=== PATIENT | female | born 1980 | race Caucasian/White ===

== ENCOUNTER 2019-06-01 19:17 | Outpatient (RCR) | payer BC, OTHER, SELFPAY ==
--- NOTE | 2019-06-01 20:00 | PC.NURSE ---
Keanu Jay CNM in department. NST reviewed. Order given for discharge.
[2019-06-01 20:38] VITALS: BP 108/69; PULSE 93
== END 2019-08-25 08:02 | disposition home or self-care (01) ==
LOC: ANHOBOP 19:17
PROVIDERS: Visit Provider Obstetrics & Gynecology
DX: O36.8120 Decreased fetal movements, second trimester, not applicable or unspecified (principal); Z3A.26 26 weeks gestation of pregnancy
CPT/HCPCS: 59025

== ENCOUNTER 2019-08-24 10:25 | Outpatient (CLI) | payer BC, OTHER, SELFPAY ==
[2019-08-24 10:42] LABS: Basophils Percent Auto 0.3 % (0.2-1.2); Eosinophils Absolute Auto 0.2 K/mm3 (0-0.3); Hematocrit 36.4 % (37.0-47.0); Hemoglobin 12.4 g/dL (12.0-15.0); Immature Granulocyte Absolute 0.03 K/mm3 (0.00-0.031); Immature Granulocyte Percent A 0.3 % (0-0.5); Lymphocytes Absolute Auto 1.32 K/mm3 (0.9-3.2); Lymphocytes Percent Auto 13.9 % (18.3-44.2); Mean Corpuscular HGB Conc 34.1 g/dl (32-36); Mean Corpuscular Hemoglobin 30.4 pg (26-34); Mean Corpuscular Volume 89.2 fl (80-100); Mean Platelet Volume 10.1 fl (7.4-10.4); Monocytes Absolute Auto 0.5 K/mm3 (0.1-0.6); Monocytes Percent Auto 5.4 % (2.6-8.5); Neutrophils Absolute Auto 7.5 K/mm3 (1.3-6.7); Neutrophils Percent Auto 78.1 % (45.5-73.1); Platelet Count Result 201 k/mm3 (150-375); Red Blood Count 4.08 M/mm3 (4.2-5.4); White Blood Count 9.5 K/mm3 (4.5-10.0)
[2019-08-25 08:26] LABS: Rapid Plasma Reagin Non-Reactive (NonReactive)
== END 2019-08-24 10:26 | disposition home or self-care (01) ==
PROVIDERS: Visit Provider Obstetrics & Gynecology
DX: Z34.93 Encounter for supervision of normal pregnancy, unspecified, third trimester (principal); Z3A.00 Weeks of gestation of pregnancy not specified
CPT/HCPCS: 36415; 85025; 86592; 86900; 86901

== ENCOUNTER 2019-08-25 06:32 | Inpatient (IN) | payer BC, OTHER, SELFPAY ==
--- NOTE | 2019-08-01 14:52 | PC.NURSE ---
VERIFIED WITH OR SCHEDULE AND PATIENT--C/S WITH TUBAL LIGATION ON 08/26/19 AT 0730 PATIENT GIVEN REQUISITION FOR LAB DRAW ON 08/25/19
[2019-08-25] VITALS (41 sets, daily range): BP systolic 81–139; BP diastolic 57–121; PULSE 68–171; RESP 18; TEMP 36.2–37.2; O2SAT 97–100; BMI 35.9
[2019-08-25] MEDS: LACTATED RINGERS 1,000 ML 999 ML IV CONT (07:13)
--- NOTE | 2019-08-25 07:17 | LDADM ---
This patient, Ariane Archer, was admitted to Labor/Delivery/Recovery 119 on 08/25/19 at 06:32. Plans for labor, pain management and were discussed with patient. Patient/family oriented to hospital policies and general routines including ID bracelet, bed and alarms, visiting hours, pain management, procedures, bathroom and other care routines, personal items, smoking policy, room service/diet and guest tray routines, infant security routines, and visiting hours. Patient/Family are encouraged to report perceived risks to care and to ask questions if they do not understand what they are told or what they should do. See OBIX for further documentation.
--- NOTE | 2019-08-25 07:41 | WPDANESEPPF ---
Anes - Initial Pre Proc Eval Procedure: Operation Date: 08/25/19 09:00 Proposed Procedures p Repeat Section With Bilateral Tubal Ligation - David Sims MD Date/Time: 08/25/19 07:41 Surgeon: David Sims MD Pre Op Diagnosis: R C/S Patient Data Age: 39 Gender: F Height: 1.68 m Weight: 100.9 kg Last Vital Signs Temp 36.8 C 08/25/19 07:15 Pulse 95 08/25/19 07:16 BP 122/71 08/25/19 07:16 Allergies Allergy/AdvReac Type Severity Reaction Status Date / Time cetirizine AdvReac Unknown INSOMIA, Verified 08/01/19 14:28 AGGRESSION Home Medications Medication Instructions Recorded Confirmed Type PNV cmb#95-ferrous fumarate-FA 1 tablet PO DAILY 08/01/19 08/01/19 History [] famotidine [Pepcid] 20 mg PO DAILY 08/01/19 08/01/19 History loratadine-pseudoephedrine 1 tablet PO DAILY 08/01/19 08/01/19 History [Claritin-D 24 Hour] Patient hx anesthesia problems: none Family hx anesthesia problems: none PMFSH Past Medical History Medical History (Updated 08/25/19 @ 07:42 by Dereck Palma MD) IBS (irritable bowel syndrome) Psoriasis Surgical History Surgical History (Updated 08/25/19 @ 07:42 by Dereck Palma MD) Hx of section X2 Family History Family History (Updated 08/01/19 @ 14:33 by Chau Arguello RN) Grandparent Hypertension Diabetes mellitus Grandparent Brain aneurysm Grandparent Cerebrovascular accident Social History Social History Smoking status: Former smoker Substance use: never Spiritual care concerns: No Anes - Eval Final PreProcedure Day of Procedure 08/25/19 07:41 Patient weight: overweight Heart: regular rate and rhythm Lungs: clear to auscultation and normal air movement Airway: Mallampati scale class II Neurological: alert and oriented Last oral intake: >/= 8 hours ASA classification: II Emergent: no Anesthetic plan: proceed Anesthesia type and monitoring: regional spinal Informed Consent: The patient's anesthetic plan and its attendant risks and benefits were discussed with the patient/family/POA. Questions were solicited and answers provided to the satisfaction of the patient/family/POA.
[2019-08-25] MEDS: ceFAZolin 2 GM/D5W 50 ML 2 GM/50 ML BAG IVPB (07:51)
--- NOTE | 2019-08-25 07:52 | PM.IMHP ---
H&P: HPI History of Present Illness Chief complaint: R C/S Narrative: Ariane Archer is a 39 year old female 11 para 2 0 8 2 at 39 weeks gestation who presents for repeat delivey. She has history of 2 previous deliveries. She has unwanted fertility as well. We have agreed to perform a repeat delivery with bilateral tubal ligation. The procedure has been explained in detail. Risks have been explained in detail as well. She understands that injuries may occur that result in hospitalization, more surgery, and severe illness. She understands risk of hemorrhage and infection. Review of Systems Constitutional: Constitutional: Reports no additional constitutional complaints, Denies fatigue, Denies headache(s), Denies lethargy and Denies weakness Eyes: Eyes: Reports no additional eye complaints, Denies blurry vision and Denies photophobia ENT: Reports as per HPI, Denies headache(s) and Denies neck pain Cardiovascular: Cardiovascular: Denies chest pain, Denies diaphoresis, Denies leg edema, Denies palpitations and Denies dyspnea Respiratory: Respiratory: Denies hemoptysis, Denies dyspnea and Denies wheezing Gastrointestinal: Gastrointestinal: Denies abdominal pain, Denies melena, Denies bloating, Denies hematochezia, Denies nausea and Denies vomiting Genitourinary: Genitourinary: Reports no additional female genitourinary complaints Musculoskeletal: Musculoskeletal: Denies joint swelling, Denies neck pain, Denies numbness and Denies stiffness Neurologic: Denies Abnormal speech present, Denies confusion, Denies headache(s), Denies numbness and Denies weakness Psychiatric: Psychiatric: Denies anxiety, Denies confusion, Denies depression, Denies homicidal ideation and Denies suicidal ideation Endocrine: Endocrine: Denies fatigue and Denies palpitations Allergic/Immunologic: Allergic/Immunologic: Denies wheezing PMFSH Past Medical History Medical History (Updated 08/25/19 @ 07:54 by David Sims MD) IBS (irritable bowel syndrome) Psoriasis Surgical History Surgical History (Updated 08/25/19 @ 07:42 by Dereck Palma MD) Hx of section X2 Family History Family History (Updated 08/01/19 @ 14:33 by Chau Arguello RN) Grandparent Hypertension Diabetes mellitus Grandparent Brain aneurysm Grandparent Cerebrovascular accident Social History Social History Smoking status: Former smoker Substance use: never Spiritual care concerns: No Meds Home Medications and Allergies Home Medications Medication Instructions Recorded Confirmed Type PNV cmb#95-ferrous fumarate-FA 1 tablet PO DAILY 08/01/19 08/01/19 History [] famotidine [Pepcid] 20 mg PO DAILY 08/01/19 08/01/19 History loratadine-pseudoephedrine 1 tablet PO DAILY 08/01/19 08/01/19 History [Claritin-D 24 Hour] Allergies Allergy/AdvReac Type Severity Reaction Status Date / Time cetirizine AdvReac Unknown INSOMIA, Verified 08/01/19 14:28 AGGRESSION Vital Signs Vital Signs - 24 hr 08/25/19 06:57 08/25/19 07:01 08/25/19 07:15 Temperature 98.2 F Pulse Rate 105 H 101 H Blood Pressure 114/76 121/63 08/25/19 07:16 Temperature Pulse Rate 95 Blood Pressure 122/71 Exam Const: General: healthy appearing, comfortable and no acute distress; No confusion Orientation/consciousness: No confusion Eyes: Direct Ophthalmoscopy: No photophobia Resp: Auscultation: clear to auscultation bilaterally, no rales, no rhonchi and no wheezes Cardio: Rate: regular rate Heart sounds: no click, no murmurs and no rubs GI: Inspection: non-distended GI Palp: No abdominal tenderness Auscultation: normal bowel sounds Neuro: General: No confusion Speech: No Abnormal speech present Extrem: General: normal to inspection, no pedal edema and no calf tenderness Assessment and Plan Assessment and plan (1) Hx of section: Code(s): Z98.891 - History of u
--- NOTE | 2019-08-25 08:49 | PM.PROC ---
Procedure Note - Detailed Date of procedure: 08/25/19 Pre-op diagnosis: R C/S Unwanted fertility Post-op diagnosis: same Procedure performed: Repeat low-transverse delivery, tubal ligation Description of procedure: The patient was taken the operating room. She was prepped and draped in the dorsal supine position with leftward tilt after induction of spinal anesthetic. When anesthesia was found to be adequate a low-transverse skin incision was made and carried down to the level the fascia with the knife. The fascial incision was made at the midline with a scalpel. The fascial incision was extended laterally with Arambula scissors. The fascia was tented upward superior and inferior with Shane clamps. The rectus muscles were dissected off bluntly. The rectus muscles at the midline. The preperitoneal fat was dissected bluntly at the superior aspect of the separate the rectus muscles. The peritoneal cavity was entered bluntly in the same area. The peritoneal incision was extended superior and inferior with good position of bladder. Bladder blade was inserted. A low-transverse incision was made on the uterus with the scalpel. It was carried down the level of the amniotic cavity with a knife. The amniotic cavity bluntly. The uterine incision was made laterally with blunt traction. The was delivered. The cord was clamped and cut. The infant was handed off to waiting pediatric staff. Cord bloods were obtained. The placenta was removed manually. The uterus was exteriorized. Uterus cleared of all clots and debris. Uterus closed in 0 Vicryl in a running locked fashion. An imbricating layer of 0 Vicryl was also placed on the to bolster the closure. Fallopian tube was grasped in the ampullary region with a [place]. It was raised away from the accompanying vein. A window was created in the broad ligament in this area of the tube. 0 Vicryl was used to ligate the proximal distal ends of the skeletonize region of the tube. The segment of the tube was resected with scissors. The cut surfaces were cauterized. On the contralateral side the procedure was performed identically. The uterus was returned to the abdomen. The gutters were cleared of all clots and debris. The fascia was closed 0 Vicryl in a running fashion. Subcutaneous tissue was irrigated and bleeding areas were cauterized. The skin was closed with subcuticular absorbable adelia. The incision was covered with derma plasencia. The patient tolerated the procedure well. She was taken recovery room stable condition. Sponge, lap, needle counts were correct x2. Anesthesia: spinal Surgeon: David Sims MD Estimated blood loss (mL): 450 Drains: No Packing: No Pathology: none sent Complications: No immediate complications Condition: stable Disposition: floor Findings: Normal maternal anatomy. Average size infant with normal Apgars.
[2019-08-25] MEDS: OXYTOCIN 30 UNITS/NS 500 ML 30 UNITS/500 ML BAG 125 UNITS IV CONT (09:31)
--- NOTE | 2019-08-25 11:53 | PC.NURSE ---
1115-Patient transferred to post room #289 via stretcher. Support person present. Oriented to unit, room, information board, rooming in, admission packet and security measures. Patient verbalizes understanding.
[2019-08-25] MEDS: IBUPROFEN 600 MG TABLET PO ×2 (13:02→21:32)
[2019-08-25] MEDS: DEXTROSE 5%/0.45% SOD CHL 1,000 ML 125 ML IV CONT (13:30)
[2019-08-25] MEDS: KCL 20 MEQ/D5/0.45% SOD CHL 1,000 ML 125 ML IV CONT (21:39)
[2019-08-26 00:10] VITALS: BP 122/70; PULSE 97; RESP 17; TEMP 37.2
[2019-08-26] MEDS: IBUPROFEN 600 MG TABLET PO ×3 (04:34→17:03)
[2019-08-26 04:42] LABS: Basophils Percent Auto 0.2 % (0.2-1.2); Eosinophils Absolute Auto 0.1 K/mm3 (0-0.3); Eosinophils Percent Auto 0.6 % (0-4.4); Hematocrit 30.8 % (37.0-47.0); Hemoglobin 10.6 g/dL (12.0-15.0); Immature Granulocyte Absolute 0.08 K/mm3 (0.00-0.031); Immature Granulocyte Percent A 0.5 % (0-0.5); Lymphocytes Absolute Auto 1.12 K/mm3 (0.9-3.2); Lymphocytes Percent Auto 7.3 % (18.3-44.2); Mean Corpuscular HGB Conc 34.4 g/dl (32-36); Mean Corpuscular Volume 90.1 fl (80-100); Monocytes Absolute Auto 0.9 K/mm3 (0.1-0.6); Monocytes Percent Auto 6.1 % (2.6-8.5); Neutrophils Absolute Auto 13.1 K/mm3 (1.3-6.7); Neutrophils Percent Auto 85.3 % (45.5-73.1); Platelet Count Result 181 k/mm3 (150-375); Red Blood Count 3.42 M/mm3 (4.2-5.4); Red Cell Distribution Width 13.1 % (11.5-14.5); White Blood Count 15.4 K/mm3 (4.5-10.0)
[2019-08-26 05:00] VITALS: BP 103/63; PULSE 98; RESP 16; TEMP 36.8
[2019-08-26 08:35] VITALS: BP 104/60; PULSE 90; RESP 18; TEMP 36.9; O2SAT 99
[2019-08-26] MEDS: DOCUSATE SODIUM 100 MG CAPSULE PO ×2 (10:06→17:03)
[2019-08-26] MEDS: FAMOTIDINE 20 MG TABLET PO ×2 (10:06→10:52)
[2019-08-26] MEDS: SIMETHICONE 80 MG TAB.CHEW PO (10:29)
--- NOTE | 2019-08-26 13:10 | P.PNOB_ITS ---
OB - PN: Subj Subjective Date/time seen: 08/26/19 13:10 Patient comments: no complaints and pain well controlled baby status: doing well OB - PN: Obj Data Labs CBC & Chem 7: 08/26/19 04:15 Labs: Laboratory Results - last 24 hr 08/26/19 04:15 WBC 15.4 H RBC 3.42 L Hgb 10.6 L Hct 30.8 L MCV 90.1 MCH 31.0 MCHC 34.4 RDW 13.1 Plt Count 181 MPV 10.0 Immature Gran % (Auto) 0.5 Neut % (Auto) 85.3 H Lymph % (Auto) 7.3 L [place] % (Auto) 6.1 Eos % (Auto) 0.6 Baso % (Auto) 0.2 Lymph # (Auto) 1.12 [place] # (Auto) 0.9 H Eos # (Auto) 0.1 Baso # (Auto) 0.0 Abs Immat Gran (auto) 0.08 H Absolute Neuts (auto) 13.1 H Absolute Nucleated RBC 0.0 Nucleated RBC % 0.0 OB - PN A/P Plan day: 1 Comments: Post Op LTCS - no problems, routine recovery Time Spent With Patient Time: Total time spent is greater than 50% in coordination of care (as documented) at patient's floor/unit and/or counseling patient: Exam Const: General: cooperative, healthy appearing, comfortable and no acute distress Resp: Auscultation: no crackles, no rales, no rhonchi and no wheezes Cardio: Rhythm: regular rhythm Heart sounds: no click and no murmurs GI: Inspection: non-distended Auscultation: normal bowel sounds Extrem: General: normal to inspection, no pedal edema and no calf tenderness
--- NOTE | 2019-08-26 13:14 | WPDHPUPDATE1 ---
History and Physical Update Update Date/Time: 08/26/19 13:14 This patient is a 17y/o G1 at 39 week gestation who presents for labor. She has an uncomplicated . She presented with contractions and demonstrated cervical change during observation. AROM was preformed after 2nd dose of Abx. Clear fluid - 5/50/-3, Epidural placed. Expectant management and augmentation. History and Physical has been reviewed, including an updated exam of the patient. There are NO changes in the patient's condition. Risks, benefits, and alternatives have been discussed and questions answered. Patient agrees to proceed with procedure.
--- NOTE | 2019-08-26 15:56 | WPDANLDPN2 ---
Anes-Prog Note L&D Date/Time: 08/26/19 15:56 Comfortable throughout: section Neuraxial method: spinal Epidural/Spinal procedure site: clean & non-tender Neuro status: Neuro function grossly intact. Cardiovascular status: normal Respiratory status: normal Airway patency: baseline Mental status: baseline Post-Op hydration status: normal Vital Signs: Last Vital Signs Temp 36.9 C 08/26/19 08:35 Pulse 90 08/26/19 08:35 Resp 18 08/26/19 08:35 BP 104/60 08/26/19 08:35 Pulse Ox 99 08/26/19 08:35 I/O: Intake & Output 08/25/19 08/26/19 08/26/19 23:59 07:59 15:59 Intake Total 1418 600 Output Total 675 2600 Balance 743 -2000 Post-procedural complaints: none Patient feedback: Patient satisfied with anesthetic care.
--- NOTE | 2019-08-26 15:57 | WPDANLDNPN2 ---
Anes-Prog Note L&D-Neuraxial Date/Time: 08/26/19 15:57 Neuraxial medications: intrathecal PF morphine Opiod-related complaints: none Patient feedback: Patient satisfied with post-operative pain management.
[2019-08-26 19:25] VITALS: BP 115/70; PULSE 96; RESP 16; TEMP 36.6; O2SAT 99
--- NOTE | 2019-08-26 19:25 | PC.NURSE ---
Patient viewed the discharge video Mother & Baby Care, The First Two Weeks . Patient was given the opportunity and encouraged to ask questions. Patient verbalized understanding of information shared and has been given the mother/baby guide for home reference.
[2019-08-27] MEDS: IBUPROFEN 600 MG TABLET PO ×2 (00:02→05:52)
[2019-08-27 08:55] VITALS: BP 117/75; PULSE 84; RESP 18; TEMP 36.5
[2019-08-27] MEDS: DOCUSATE SODIUM 100 MG CAPSULE PO (10:21)
--- NOTE | 2019-08-27 13:10 | PM.OBPNVD ---
OB - PN: Subj Subjective Date/time seen: 08/27/19 13:10 Patient comments: no complaints, pain well controlled, incisional pain, tolerating diet and flatus present OB - PN: Obj Data Labs CBC & Chem 7: 08/26/19 04:15 OB - PN A/P Plan day: 2 Plan: routine care Comments: POD#2 LTCS - no problems, to d/c - incision - cdi Time Spent With Patient Time: Total time spent is greater than 50% in coordination of care (as documented) at patient's floor/unit and/or counseling patient: Exam Const: General: comfortable, no acute distress and alert Resp: Effort & Inspection: normal respiratory effort Auscultation: no crackles, no rales and no rhonchi Cardio: Rate: regular rate Heart sounds: no click, no murmurs and no rubs GI: Inspection: non-distended GI Palp: No Tenderness to palpation present (GI) Auscultation: normal bowel sounds Other: Incision - CDI Extrem: General: normal to inspection, no pedal edema and no calf tenderness
--- NOTE | 2019-08-27 13:12 | PM.OBDSVD ---
DS: Diagnosis Admitting Diagnosis Admitting Diagnosis: History of uterine scar from previous surgery Discharge Diagnosis (1) delivery delivered: Code(s): O82 - Encounter for delivery without indication Status: Acute (2) Unwanted fertility: Code(s): Z30.09 - Encounter for other general counseling and advice on contraception Status: Acute OB - DS: Summary OB Procedures : NST and Ultrasound OB Procedures Intrapartum: and Tubal ligation OB Procedures: : None Peripartum Data Procedures: Procedures Operation Date: 08/25/19 09:00 Actual Procedures Side Surgeon p Section David Sims MD complications: none Status at Discharge Functional status at discharge: independent ambulation Time Spent with Patient Time attestation: Total time spent providing and/or coordinating discharge services: Time spent: Less than 30 minutes DS: Data Data Completed and Pending Completed studies during hospitalization: Pending at discharge 08/25/19 08:28 Surgical [PTH] Routine Discharge Plan Discharge Discharging Clinician: David Sims Patient Disposition: Home, Self-Care Activity: pelvic rest Diet: regular Patient Instructions: Antibiotic Form Stand Alone Forms: General Discharge Information Follow-up/Referrals: David Sims MD [Physician] - Discharge Medications: New hydrocodone-acetaminophen 5-325 mg tablet 1 - 2 tablet PO Q4H PRN (Reason: pain) Qty: 25 RF: 0 Continued loratadine-pseudoephedrine [Claritin-D 24 Hour] 10-240 mg Tablet Extended Release 24 Hr 1 tablet PO DAILY RF: 0 famotidine [Pepcid] 20 mg Tablet 20 mg PO DAILY RF: 0 PNV cmb#95-ferrous fumarate-FA [] 28 mg iron- 800 mcg Tablet 1 tablet PO DAILY RF: 0 Date of admission: 08/25/19 06:32 Primary Care Provider: UNKNOWN,DOCTOR Admitting Provider: David Sims Attending physician on admission: David Sims
[2019-08-29 09:16] VITALS: BP 122/77; PULSE 84; RESP 18; TEMP 36.6; O2SAT 99
== END 2019-08-27 13:50 | disposition home or self-care (01) | DRG 785 ==
LOC: ANHSURGERY 06:43 → ANHLDR 06:44 → ANHOB2 13:30
PROVIDERS: Admitting Provider Obstetrics & Gynecology; Visit Provider Obstetrics & Gynecology
PROC: 10D00Z1 Extraction of Products of Conception, Low, Open Approach (ICD-10-PCS; CPT 59514; principal; 2019-08-25 09:00)
DX: O34.211 Maternal care for low transverse scar from previous cesarean delivery (principal); Z3A.39 39 weeks gestation of pregnancy; Z37.0 Single live birth; Z30.2 Encounter for sterilization; K58.9 Irritable bowel syndrome, unspecified; L40.9 Psoriasis, unspecified; O99.72 Diseases of the skin and subcutaneous tissue complicating childbirth; O99.62 Diseases of the digestive system complicating childbirth; Z23 Encounter for immunization
CPT/HCPCS: 36415; 85025; 86592; 86900; 86901; 88302; A9270; J0131; J0690; J1200; J1885; J2274; J2370; J2590; J3480; J7120

== ENCOUNTER 2020-04-27 10:06 | Outpatient (CLI) | payer BC, OTHER, SELFPAY | END 2020-04-27 10:07 | disposition home or self-care (01) | LOC: ANHSURGERY 10:13 | PROVIDERS: Visit Provider Obstetrics & Gynecology | DX: Z01.818 Encounter for other preprocedural examination (principal); N92.0 Excessive and frequent menstruation with regular cycle | CPT/HCPCS: 36415; 86850; 86900; 86901 ==

== ENCOUNTER 2020-04-28 01:13 | Outpatient (CLI) | payer BC, SELFPAY ==
[2020-04-28 20:15] LABS: SARS-CoV-2 RNA PCR Negative
== END 2020-04-28 01:14 | disposition home or self-care (01) ==
LOC: ANHCOVIDDT 01:13
PROVIDERS: Visit Provider Obstetrics & Gynecology
DX: Z01.818 Encounter for other preprocedural examination (principal); Z20.828 Contact with and (suspected) exposure to other viral communicable diseases
CPT/HCPCS: 87635; C9803; U0003

== ENCOUNTER 2020-05-02 00:35 | Day surgery (SDC) | payer BC, SELFPAY ==
[2020-04-24 16:43] VITALS: BMI 34.7
--- NOTE | 2020-05-01 14:17 | WPDANESEPPF ---
Anes - Initial Pre Proc Eval Procedure: Operation Date: 05/02/20 12:00 Proposed Procedures p Laparoscopic Assisted Total Vaginal Hysterectomy - David Sims MD Date/Time: 05/01/20 14:17 Surgeon: David Sims MD Pre Op Diagnosis: Menorrhagia Patient Data Age: 39 Gender: F Height: 1.68 m Weight: 97.6 kg Allergies Allergy/AdvReac Type Severity Reaction Status Date / Time cetirizine AdvReac Unknown INSOMIA, Verified 08/01/19 14:28 AGGRESSION Home Medications Medication Instructions Recorded Confirmed Type ropinirole 0.25 mg PO HS 04/24/20 04/24/20 History Patient hx anesthesia problems: none Family hx anesthesia problems: none PMFSH Past Medical History Medical History (Updated 05/01/20 @ 14:17 by Harinder Santiago DO) IBS (irritable bowel syndrome) DONAVAN (obstructive sleep apnea) CPAP Psoriasis Surgical History Surgical History (Updated 08/25/19 @ 07:42 by Dereck Palma MD) Hx of section X2 Family History Family History (Updated 08/01/19 @ 14:33 by Chau Arguello RN) Grandparent Hypertension Diabetes mellitus Grandparent Brain aneurysm Grandparent Cerebrovascular accident Social History Social History Smoking status: Former smoker Substance use: never Substance use type: does not use Living arrangements: with family Spiritual care concerns: No Anes - Eval Final PreProcedure Day of Procedure 05/01/20 14:17 Patient weight: obese Heart: regular rate and rhythm Lungs: clear to auscultation and normal air movement Airway: Mallampati scale class III and special considerations Neurological: alert and oriented Last oral intake: >/= 8 hours ASA classification: III Emergent: no Anesthetic plan: proceed Anesthesia type and monitoring: general ETT and standard monitoring Informed Consent: The patient's anesthetic plan and its attendant risks and benefits were discussed with the patient/family/POA. Questions were solicited and answers provided to the satisfaction of the patient/family/POA.
[2020-05-02] VITALS (18 sets, daily range): BP systolic 89–125; BP diastolic 30–71; PULSE 60–92; RESP 12–20; TEMP 36.1–36.9; O2SAT 97–100
[2020-05-02] MEDS: LACTATED RINGERS 1,000 ML 30 ML IV CONT ×2 (10:25→15:06)
[2020-05-02] MEDS: KETOROLAC 15 MG/ML VIAL (*BKC) IV PUSH (10:32)
[2020-05-02] MEDS: ACETAMINOPHEN 500 MG TABLET 1000 MG PO (10:32)
--- NOTE | 2020-05-02 12:16 | WPDHPUPDATE1 ---
History and Physical Update Update Date/Time: 05/02/20 12:16 History and Physical has been reviewed, including an updated exam of the patient. There are NO changes in the patient's condition. Risks, benefits, and alternatives have been discussed and questions answered. Patient agrees to proceed with procedure.
[2020-05-02] MEDS: ceFAZolin 2 GM/D5W 50 ML 2 GM/50 ML BAG IVPB (12:23)
--- NOTE | 2020-05-02 15:20 | PM.PROC ---
Procedure Note - Detailed Date of procedure: 05/02/20 Pre-op diagnosis: Menorrhagia Post-op diagnosis: same Procedure performed: Total laparoscopic hysterectomy. Description of procedure: The patient was taken to the operating room. She was prepped and draped in the dorsal lithotomy position. A speculum was placed in the vagina. The cervix was grasped with a tenaculum. Stay sutures were placed at 3 and 9:00 a.m. of 0 Vicryl. The stay sutures were brought through the Shira up. The JOSE manipulator was placed in the vagina with a fixed Shira cup. The cup was then pushed up around the cervix. The sutures were tied to the handle of the JOSE manipulator. A 5 mm incision was made on the abdominal skin of the left upper quadrant using a scalpel. A 5 mm trocar was inserted into the intra-abdominal cavity under direct visualization the scope. Pneumoperitoneum was achieved. An 11 mm incision was made in the left lower quadrant of the abdomen with a scalpel. A 11 mm trocar was inserted into the intra-abdominal cavity under direct visualization the scope. A 5 mm periumbilical incision was made. A 5 mm scope was placed into the intra-abdominal cavity under direct visualization of the scope. The suspensory ligament of the ovary was cauterized and transected with ligature cautery in a bilateral fashion. The fallopian tubes were cauterized and transected in a bilateral fashion with LigaSure cautery. The round ligaments were cauterized and transected in bilateral fashion with LigaSure cautery. The round ligaments were cauterized and transected bilaterally with LigaSure cautery. The broad ligaments were cauterized and transected along the lateral aspects of the uterus down the level of the uterine arteries. A bladder flap was created using sharp and blunt dissection. The ureters were dissected out bilaterally down to the level of the uterine arteries. They could be visualized from the pelvic brim down the uterine arteries. Staying very close to the cervix the parametrium was cauterized transected in a stepwise fashion down to the level of the Shira cup. The Bladder flap was moved distally over the Shira cup using sharp and blunt dissection. The impression of the entire cup was visualized around the cervix. An incision was made with unipolar cautery down under the Shira cup creating a colpotomy incision all the way around the cervix. The uterus was taken out through the vagina. A pneumo occluder was placed in the vagina. The vagina was closed with 0 V lock suture in a running fashion. The ureters were identified again and found to be intact to the level of the uterine arteries. The pelvis was irrigated with a copious amount of antibiotic irrigation. The pneumoperitoneum was reduced. The trocars were removed. The skin was closed subcuticular 4 Monocryl covered with Dermabond. The pneumo occluder was removed from the vagina. The vagina was irrigated with Betadine. The patient tolerated the procedure well. She was taken to the recovery room in stable condition. Sponge lap and needle counts were correct x2. There was bleeding throughout this case. There were small bleeding areas that persisted in bleeding. Significant time was spent at the end of the case identifying very small bleeding areas and cauterizing them. Careful examination of the pelvis at the end of the case was performed to ensure the pelvis was hemostatic. This was done with knowledge of the ureteral anatomy. Anesthesia: GETA Surgeon: David Sims MD Estimated blood loss (mL): 250 Drains: No Packing: No Pathology: yes Complications: No immediate complications Condition: stable Disposition: PACU Findings: Grossly normal appearing tubes and ovaries. Uterus -marked vascularity, bladder was adhered to the uterus, extending up 1/3 of the uterine body.
[2020-05-02] MEDS: ONDANSETRON INJ 4 MG/2 ML VIAL IV PUSH (15:26)
[2020-05-02] MEDS: diphenhydrAMINE HCl INJ 50 MG/ML VIAL 25 MG IV PUSH ×2 (15:39→16:37)
[2020-05-02] MEDS: PROMETHAZINE HCL 25 MG/ML AMPUL 12.5 MG IV PUSH (15:56)
[2020-05-02] MEDS: SCOPOLAMINE 1.5 MG PATCH TRANSDERM (15:56)
[2020-05-02] MEDS: HALOPERIDOL LACTATE 5 MG/ML VIAL 1 MG IV PUSH (16:57)
--- NOTE | 2020-05-02 17:17 | SUR.PHASEI ---
PT STATES NAUSEA IS FINALLY SOMEWHAT BETTER.
--- NOTE | 2020-05-02 17:33 | SUR.PHASEI ---
CALLED A SECOND TIME FOR UPDATE. PT SLEEPING COMFORTABLY NOW.
--- NOTE | 2020-05-02 17:35 | SUR.PHASEI ---
REPORT GIVEN TO 2ND FLOOR OB RN.
--- NOTE | 2020-05-02 17:45 | PC.NURSE ---
This patient, Ariane Archer, was received from PACU per bed to room 289. Patient/family oriented to unit policies and routines
[2020-05-02] MEDS: rOPINIRole HCL 0.25 MG TABLET PO (20:33)
[2020-05-02] MEDS: KETOROLAC 30 MG/ML VIAL (*BKC) IV PUSH (20:41)
[2020-05-03 04:45] VITALS: BP 110/64; PULSE 72; RESP 16; TEMP 36.9; O2SAT 99
[2020-05-03] MEDS: KETOROLAC 30 MG/ML VIAL (*BKC) IV PUSH (04:52)
--- NOTE | 2020-05-03 07:53 | PM.GYNPNOP ---
DEHYDRATOR TENDER - A/P Postoperative Procedures: Procedures Operation Date: 05/02/20 12:00 Actual Procedures Side Surgeon p Laparoscopic Assisted Total Vaginal Hysterectomy Not Applicable David Sims MD Postoperative day: 1 Postoperative status: doing well and other (Tollerating Regular Diet) Postoperative plan: routine post-op care and discharge Time Spent With Patient Time: Total time spent is greater than 50% in coordination of care (as documented) at patient's floor/unit and/or counseling patient: Time with patient: 15 - 25 minutes DEHYDRATOR TENDER- PN:Subj Post-Op Subjective Date/time seen: 05/03/20 07:53 Subjective: patient reports feeling better, pain is well controlled and patient is tolerating oral intake Exam Const: General: cooperative, healthy appearing, comfortable and no acute distress Resp: Auscultation: no crackles, no rales, no rhonchi and no wheezes Cardio: Rhythm: regular rhythm Heart sounds: no click and no murmurs GI: Inspection: non-distended Auscultation: normal bowel sounds Other: Incisions - CDI Extrem: General: normal to inspection, no pedal edema and no calf tenderness DEHYDRATOR TENDER - PN: Obj Data Vital Signs Vital Signs: Vital Signs - 24 hr 05/02/20 09:59 05/02/20 15:06 05/02/20 15:20 Temperature 98.1 F 97.2 F L Pulse Rate 92 60 79 Respiratory Rate 20 13 19 Blood Pressure 125/69 107/67 114/71 Pulse Oximetry 99 100 97 05/02/20 15:35 05/02/20 15:50 05/02/20 16:05 Temperature Pulse Rate 70 66 67 Respiratory Rate 17 16 14 Blood Pressure 103/63 99/65 L 89/30 L Pulse Oximetry 100 100 100 05/02/20 16:20 05/02/20 16:35 05/02/20 16:50 Temperature Pulse Rate 61 66 60 Respiratory Rate 15 17 12 Blood Pressure 104/64 89/30 L 96/69 L Pulse Oximetry 100 100 99 05/02/20 17:05 05/02/20 17:20 05/02/20 17:45 Temperature Pulse Rate 71 69 69 Respiratory Rate 14 14 14 Blood Pressure 107/68 103/61 Pulse Oximetry 100 97 97 05/02/20 17:50 05/02/20 18:15 05/02/20 18:30 Temperature 96.9 F L Pulse Rate 71 80 66 Respiratory Rate 16 Blood Pressure 111/59 L 108/60 104/57 L Pulse Oximetry 100 100 100 05/02/20 19:00 05/02/20 20:00 05/02/20 23:35 Temperature 98.5 F 98.5 F Pulse Rate 64 69 72 Respiratory Rate 16 16 Blood Pressure 102/68 106/55 L 114/65 Pulse Oximetry 100 100 98 05/03/20 04:45 Temperature 98.5 F Pulse Rate 72 Respiratory Rate 16 Blood Pressure 110/64 Pulse Oximetry 99 Intake/Output Intake/Output: Intake & Output 04/30/20 05/01/20 05/02/20 05/03/20 23:59 23:59 23:59 23:59 Intake Total 2550 240 Output Total 2170 900 Balance 380 -660 Meds/Results Medications: Active Medications Generic Name Dose Route Start Last Admin Trade Name Freq PRN Reason Stop Dose Admin Hydrocodone Bitart/Acetaminophen 1 tab 05/02/20 17:44 Hydrocodone/Acetaminophen (*Crx) 5-325 Mg Tablet PO Q3H PRN Pain Rated 5 or Less Hydrocodone Bitart/Acetaminophen 1 tab 05/02/20 17:44 Hydrocodone/Acetaminophen (*Crx) 10-325 Mg Tablet PO Q3H PRN Pain Rated 6 or Greater Ibuprofen 600 mg 05/02/20 17:44 Ibuprofen 600 Mg Tablet PO Q6H PRN Cramping Ketorolac Tromethamine 30 mg 05/02/20 17:44 05/03/20 04:52 Ketorolac 30 Mg/Ml Vial (*Bkc) IV PUSH 05/07/20 17:45 30 mg Q6H PRN Administration Pain Rated 4-6 Naloxone HCl 0.1 mg 05/02/20 17:44 Naloxone Hcl 0.4 Mg/Ml Vial IV PUSH Q2M PRN Respiratory rate less than 10 Ondansetron HCl 4 mg 05/02/20 17:44 Ondansetron Inj 4 Mg/2 Ml Vial IV PUSH Q6H PRN Nausea And Vomiting Ropinirole HCl 0.25 mg 05/02/20 21:00 05/02/20 20:33 Ropinirole Hcl 0.25 Mg Tablet PO 0.25 mg HS KEVIN Administration
[2020-05-03 08:10] VITALS: BP 104/61; PULSE 70; RESP 16; TEMP 36.8; O2SAT 100
== END 2020-05-03 09:30 | disposition home or self-care (01) ==
LOC: ANHSURGERY 09:50 → ANHOB2 17:46
PROVIDERS: Visit Provider Obstetrics & Gynecology
PROC: 0UT9FZZ Resection of Uterus, Via Natural or Artificial Opening With Percutaneous Endoscopic Assistance (ICD-10-PCS; CPT 58571; principal; 2020-05-02 12:00)
DX: N92.0 Excessive and frequent menstruation with regular cycle (principal); D25.1 Intramural leiomyoma of uterus; N80.0 Endometriosis of uterus; N83.8 Other noninflammatory disorders of ovary, fallopian tube and broad ligament; G47.33 Obstructive sleep apnea (adult) (pediatric); Z87.891 Personal history of nicotine dependence; E66.9 Obesity, unspecified; Z68.34 Body mass index [BMI] 34.0-34.9, adult
CPT/HCPCS: 58571; 36415; 86850; 86900; 86901; 87635; 88307; 99199; A9270; C9803; J0690; J1100; J1200; J1630; J1885; J2250; J2405; J2550; J2704; J2710; J3010; J7030; J7120; U0003

== ENCOUNTER 2021-10-19 08:21 | Emergency (ER) | payer BC, SELFPAY ==
[2021-10-19 08:34] VITALS: BP 112/72; PULSE 88; RESP 20; TEMP 36.4; O2SAT 100
--- NOTE | 2021-10-19 08:42 | ED.FEMALEGU ---
HPI - Female Genitourinary General Chief complaint: Urogenital-Female Stated complaint: poss uti / congestion Time Seen by Provider: 10/19/21 09:06 Source: patient Mode of arrival: ambulatory Limitations: no limitations History of Present Illness HPI Narrative: 41-year-old female presents multiple complaints. She reports 4-day history of nasal congestion, rhinorrhea, sneezing, scratchy throat. She reports she is allergic to cats and recently had interaction with multiple cats. She reports she wanted to know if there is anything else she can do for her allergies. She has been taking Xyzal, Flonase, Afrin. She also reports that on she began having nausea and vomiting, reports those symptoms resolved and she then had difficulty urinating. Reports that she felt she needed to urinate but was not urinating a large amount. She reports slight burning with urination. She reports bilateral low backache without injury. She denies fever, chills, sweats. Related Data Allergies Allergy/AdvReac Type Severity Reaction Status Date / Time cetirizine AdvReac Unknown INSOMIA, Verified 10/19/21 08:47 AGGRESSION Review of Systems Review of Systems: CONSTITUTIONAL: Denies malaise, chills, sweats, or fever. EYES: Denies visual changes, redness, or discharge. ENT: Reports rhinorrhea, congestion, scratchy throat. Denies sinus pain, otalgia or sore throat. CARDIOVASCULAR: Denies chest pain, palpitations, or edema. RESPIRATORY: Denies cough or dyspnea. GASTROINTESTINAL: Denies abdominal pain, current nausea, vomiting, diarrhea, bloody GENITOURINARY: Reports mild dysuria, decreased urine output MUSCULOSKELETAL: Reports bilateral low back ache. Denies joint pain, or myalgia. NEUROLOGIC: Denies numbness, weakness, or headache. All systems reviewed & are unremarkable except as noted in HPI and below [facility] Past Medical History Medical History (Updated 10/19/21 @ 09:20 by Jasmine Alves NP) IBS (irritable bowel syndrome) DONAVAN (obstructive sleep apnea) CPAP Psoriasis Surgical History Surgical History (Updated 08/25/19 @ 07:42 by Dereck Palma MD) Hx of section X2 Family History Family History (Updated 08/01/19 @ 14:33 by Chau Arguello RN) Grandparent Hypertension Diabetes mellitus Grandparent Brain aneurysm Grandparent Cerebrovascular accident Social History Social History Smoking status: Former smoker Substance use: never Substance use type: does not use Gender identity (if verbalized by the patient): Female Spiritual care concerns: No Comments At time of signature, agree with nursing past medical, surgical, social and family history. There is no relevant family history pertinent to the presenting complaint Exam Narrative: GENERAL: Well-appearing, well-nourished, and in no acute distress. HEAD: Normocephalic, atraumatic. EYES: PERRLA, sclera clear, and EOMI. ENT: Nares clear, turbinates erythematous and slightly edematous, clear discharge. Mucous membranes moist. TM pearly francis with sharp light reflex bilaterally; no tragal tenderness. Oropharynx without erythema or lesions. Tonsils not enlarged and without exudate. NECK: Supple. No lymphadenopathy. CHEST: No respiratory distress. Clear to auscultation. No bony deformities, no asymmetry. Speaks in full sentences. HEART: Regular rate and rhythm. ABDOMEN: Soft, nontender, nondistended, normal active bowel sounds, no palpable masses. No CVA tenderness SKIN: Warm, dry, no visible rash. NEURO: Alert and oriented x3. PSYCH: Normal mood and affect Course Course Emergency Course: Discussed with patient UA findings, benefits versus risks of treating with antibiotic pending culture or waiting to treat. Patient prefers to have an antibiotic in case she begins feeling worse. She reports that she may wait to start taking it until her symptoms worsen. Advised patient she should call to find the results of her urine culture on Thursday. Fannie
== END 2021-10-19 09:24 | disposition home or self-care (01) ==
PROVIDERS: Emergency Provider Nurse Practitioner
DX: R10.9 Unspecified abdominal pain (principal); Z87.891 Personal history of nicotine dependence; G47.33 Obstructive sleep apnea (adult) (pediatric)
CPT/HCPCS: 81003; 87086; 99213; G0463

== ENCOUNTER 2022-03-28 12:50 | Outpatient (CLI) | payer BC, SELFPAY | END 2022-03-28 12:51 | disposition home or self-care (01) | LOC: ANHBWCAUD 12:51 | DX: H83.3X3 Noise effects on inner ear, bilateral (principal) | CPT/HCPCS: 92557; 92567 ==